=== PATIENT | female | born 1985 | race Caucasian/White ===

== ENCOUNTER 2023-11-26 18:34 | Emergency (ER) | payer BC, SELFPAY ==
[2023-11-26 18:42] VITALS: BP 148/88
--- NOTE | 2023-11-26 19:01 | EDRN ---
Pt has had burning with urination and urgency today, concerned she has a uti. No flank pain/abd pain, n/v, fever/chills/cough
--- NOTE | 2023-11-26 19:09 | ED.GENMED ---
History of Present Illness
General
Chief Complaint: Urinary Symptoms
Source: patient
Exam Limitations: none
Time Seen by Provider: 11/26/23 18:45
Nursing documentation reviewed up to this point in time: agreed with
History of Present Illness
History of Present Illness:
38 y/o F with no sig pmh
urianry frequency/urgenct started today with dysuria
took a dose of azo CONVERSION MAN which did help some
no fever, chills, back pain, abdominal pain, vaginal symptoms, concern for STI
has not had frequent UTIs
Past History
Past History
ED Past Medical History: None
ED Past Surgical History: None
Social History
Tobacco: Non-smoker
Alcohol: None
Drug: None
Personal:
Review of Systems
Review of Systems
Allergies reviewed?: Yes
All Other Systems: Not applicable
Phy Exam
Physical Exam
Physical Exam:
GENERAL: Alert , in no apparent distress
EYE: pupils equal and reactive
NECK: Supple
ENT: o/p clr, mmm.
CARDIAC: Regular rate and rhythm .
LUNGS: Clear breath sounds bilaterally, no acute respiratory distress, no wheezes/rales/rhonchi
ABDOMEN: Soft, without focal tenderness, no r/g, no cvat, normal bowel sounds
NEUROLOGICAL: Alert and oriented, no focal neuro deficits
SKIN: Warm and dry, skin intact.
MUSCULOSKELETAL: No edema, well perfused. neg paul's sign
PSYCH: Normal and appropriate interaction.
Course
Orders/Labs/Results
Orders:
Orders
11/26/23 18:50
Test Result ONCE
11/26/23 18:59
HCG, Urine Qualitative Screen Urgent
Date Specimen was Collected: 11/26/23
Time Specimen was Collected: 18:40
Comment: ADD ON
Urine Culture Reflexed from UA [Urinalysis Reflex To Culture] Urgent
Date Specimen was Collected: 11/26/23
Time Specimen was Collected: 18:40
Urine Microscopic Reflex Cult Urgent
Urine Culture Urgent
ALIA Source: U
Specimen Description:
Date Specimen was Collected: 11/26/23
Time Specimen was Collected: 18:40
11/26/23 19:13
Add On- LAB Urgent
Tests Added?: hcg urine qualitative
11/26/23 19:27
Sulfamethox./Trimethoprim Ds [Bactrim Ds 800 mg/160 mg] 1 tablet PO NOW STA
11/26/23 19:31
Cefdinir [Omnicef] 300 mg PO NOW STA
Abnormal Lab Results
11/26/23
18:59
Ur Occult Blood Reflex 4+ A
(Negative)
Urine Nitrite (Reflex) Positive A
(Negative)
Leukocyte Esterase Rfl 2+ A
(Negative)
Urine RBC >100 A /HPF
(0-2)
Urine Bacteria (Reflex) Few A
(Negative)
Urine Albumin (Reflex) 1+ A
(Neg - Trace)
Vital Signs
Initial and Last Documented VS:
Initial Vital Signs
Temp Pulse Resp BP Pulse Ox
99.1 F 82 18 148/88 96
11/26/23 18:42 11/26/23 18:42 11/26/23 18:42 11/26/23 18:42 11/26/23 18:42
Last Documented Vital Signs
Temp Pulse Resp BP Pulse Ox
99.1 F 70 18 121/90 100
11/26/23 18:42 11/26/23 19:40 11/26/23 18:42 11/26/23 19:40 11/26/23 19:40
MDM/Problems Addressed
Differential Diagnosis Includes:
uti, cystitis
MDM/Problems Addressed:
38 y/o F
urinary symptoms that started today
dysuria, frequency, urgency
no fever/chills/back pain/vomiting to suspect pyelo
exam unremarkable
nontender abdomen, no cvat
urine positive
will prescribe abx, pyridium
urine culture sent
*Critical Care Note
Total Time (30-74mins, 75-104mins- exclusive of procedures): Not Applicable
ED Attending Note
-
Portions of this chart may have been created with voice recognition software.� Occasional wrong word or��sound alike� substitutions may have occurred due to the inherent limitations of voice recognition software.
Discharge Plan
Departure
Patient Disposition: Home (Routine Discharge)
Date of Disposition: 11/26/23
Time of Disposition: 19:28
Patient with high blood pressure during this ER visit?: No
Condition: Fair
Covid-19: Not Applicable
Discharge Problem:
UTI (urinary tract infection)
Instructions: Urinary Tract Infection, Adult (DC)
Prescriptions:
New
cefdinir 300 mg capsule
300 mg PO BID Qty: 10 0RF
phenazopyridine [Pyridium] 200 mg tablet
200 mg PO TID PRN (Reason: Pain) 2 Days Qty: 6 0RF
Referrals:
Dane Muir I., DO [Family Provider] -
Activity Restrictions/Additional Instructions:
Take the antibiotic twice a day for 5 days.
Drink fluids.
You can use a probiotic while you are on the antibiotic.
Take Pyridium 200 mg 3 times a day as needed for pressure and urgency.
Return for severe pain, vomiting, for high fever, worsening symptoms or any concerns
Interventions
Interventions:
*Risk Screen - Suicide Last Done: 11/26/23 19:00
*General Assessment Last Done: 11/26/23 19:00
*Neglect/Abuse Screening Last Done: 11/26/23 19:00
*ED COVID-19 Vaccine History Last Done: 11/26/23 19:00
*Nursing Disposition Last Done: 11/26/23 19:45
ED-Female Genitourinary Assessment Last Done: 11/26/23 19:06
Discharge Date and Time
Discharge Date/Time: 11/26/23 19:45
Print Language: KOREAN
[2023-11-26 19:10] LABS: Urine Albumin 1+ (Neg - Trace); Urine Bilirubin Negative (Negative); Urine Character Slightly Cloudy (Clear); Urine Glucose Negative (Negative); Urine Ketone Negative (Negative); Urine Leukocyte 2+ (Negative); Urine Nitrite Positive (Negative); Urine Occult Blood 4+ (Negative); Urine Urobilinogen Negative (Neg - 1+); Urine pH 6.5 (5.0-9.0)
[2023-11-26 19:21] LABS: Urine Color Amber
[2023-11-26 19:25] LABS: Urine Bacteria Few (Negative); Urine Red Blood Cell >100 /HPF (0-2)
[2023-11-26 19:33] LABS: HCG, Urine Qualitative Screen Negative
[2023-11-26] MEDS: OMNICEF 300 MG PO (19:37)
[2023-11-26 19:40] VITALS: BP 121/90
== END 2023-11-26 19:45 | disposition home or self-care (01) ==
LOC: EMR 18:34
PROVIDERS: EMERGENCY PHYSICIAN Student in an Organized Health Care Education/Training Program; FAMILY PHYSICIAN Internal Medicine
DX: N39.0 Urinary tract infection, site not specified (principal)
CPT/HCPCS: 99283; 81003; 81015; 81025; 87086; 87088; 87186

== ENCOUNTER → 2024-01-29 10:36 | Outpatient (REF) | payer BC, SELFPAY | LOC: HWRAD 10:36 | PROVIDERS: ATTENDING PHYSICIAN Nurse Practitioner Family; FAMILY PHYSICIAN Internal Medicine | DX: K09.8 Other cysts of oral region, not elsewhere classified (principal) | CPT/HCPCS: 76830; 76856 ==